=== PATIENT | female | born 1940 | race Caucasian/White ===

== ENCOUNTER 2022-09-08 18:17 | Inpatient (IN) | payer MEDICARE, BC ==
[~2022-09-08] VITALS: Ht 142.2 cm; Wt 44.1 kg
[~2022-09-08 18:17] MED LIST: Folic Acid PO; LEVO500T2 PO; Nut.tx.glucose Intolerance,Soy PO; TAMS-3 PO; TEMA7.5C PO; THIA100T13 PO
[2022-09-08 20:00] VITALS: BP 131/73
[2022-09-08] MEDS ORDERED: REMEDY ESSENTIAL ZINC PASTE 113 GM TOP PRN (20:00)
[2022-09-08] MEDS ORDERED: POLY119P2 PO (20:42)
[2022-09-08] MEDS ORDERED: HYDR-3972 PO (20:42)
[2022-09-08] MEDS ORDERED: CEFT1FRO2 IV (20:42)
[2022-09-08] MEDS ORDERED: MAGN400C PO (20:42)
[2022-09-08] MEDS ORDERED: ENOX40DI SQ (20:42)
[2022-09-08] MEDS ORDERED: LACT10SO3 PO (20:42)
[2022-09-08] MEDS ORDERED: ASCO500T10 PO (20:42)
[2022-09-08] MEDS ORDERED: FAMO-132 PO (20:42)
[2022-09-08] MEDS ORDERED: DOCU-141 PO (20:42)
[2022-09-08] MEDS ORDERED: MULT-594 PO (20:42)
[2022-09-08] MEDS ORDERED: ACET-2154 PO (20:42)
[2022-09-09] MEDS: TRAZODONE 100 MG TABLET PO PRN (02:05)
[2022-09-09] MEDS: OXYCODONE/APAP 5-325 MG TABLET PO PRN (02:05)
[2022-09-09 04:00] VITALS: BP 127/68
[2022-09-09 07:53] VITALS: BP 121/77
[2022-09-09] MEDS ORDERED: LACTULOSE 20 G/30 ML LIQUID UDC PO PRN (12:15)
[2022-09-09] MEDS ORDERED: TEMAZEPAM 7.5 MG CAPSULE PO PRN (12:15)
[2022-09-09] MEDS: levoFLOXacin 500 MG TABLET PO SCH (13:09)
[2022-09-09] MEDS: HYDROCODONE/APAP 5-325MG TABLET PO PRN (15:54)
[2022-09-09 16:14] VITALS: BP 110/64
[2022-09-09] MEDS: DOCUSATE SODIUM 100 MG CAPSULE PO SCH (17:11)
[2022-09-09] MEDS: MAGNESIUM OXIDE 400 MG TABLET PO SCH (17:11)
[2022-09-09] MEDS: GLUCERNA SHAKE 237 ML CAN PO SCH (17:12)
[2022-09-09 20:15] VITALS: BP 91/56
[2022-09-10 04:00] VITALS: BP 100/56
[2022-09-10] MEDS: GLUCERNA SHAKE 237 ML CAN PO SCH ×2 (07:49→17:24)
[2022-09-10] MEDS: MULTIVIT, IRON, MIN NO. 8, FA TABLET PO SCH (08:38)
[2022-09-10] MEDS: THIAMINE HCL 100 MG TABLET PO SCH (08:38)
[2022-09-10] MEDS: FAMOTIDINE 20 MG TABLET PO SCH (08:39)
[2022-09-10] MEDS: DOCUSATE SODIUM 100 MG CAPSULE PO SCH ×3 (08:39→17:23)
[2022-09-10] MEDS: MAGNESIUM OXIDE 400 MG TABLET PO SCH ×2 (08:39→17:23)
[2022-09-10] MEDS: OXYCODONE/APAP 5-325 MG TABLET PO PRN ×2 (08:40→13:49)
[2022-09-10 08:43] VITALS: BP 124/71
[2022-09-10] MEDS: ENOXAPARIN SODIUM 40 MG/0.4 ML DISP.SYRIN SQ SCH (08:49)
[2022-09-10] MEDS ORDERED: POLYETHYLENE GLYCOL 3350 238 GM POWDER PO SCH (09:00)
[2022-09-10] MEDS: MIRALAX 17 GM POWD.PACK PO SCH (09:37)
[2022-09-10] MEDS: levoFLOXacin 500 MG TABLET PO SCH (12:59)
[2022-09-10 15:45] VITALS: BP 104/57
[2022-09-10 19:39] VITALS: BP 103/68
[2022-09-10] MEDS: HYDROCODONE/APAP 5-325MG TABLET PO PRN (22:12)
[2022-09-11 04:00] VITALS: BP 127/76
[2022-09-11] MEDS: GLUCERNA SHAKE 237 ML CAN PO SCH ×2 (07:32→16:20)
[2022-09-11 07:52] VITALS: BP 135/75
[2022-09-11] MEDS: DOCUSATE SODIUM 100 MG CAPSULE PO SCH ×2 (08:52→16:20)
[2022-09-11] MEDS: MIRALAX 17 GM POWD.PACK PO SCH (08:52)
[2022-09-11] MEDS: FAMOTIDINE 20 MG TABLET PO SCH (08:57)
[2022-09-11] MEDS: MULTIVIT, IRON, MIN NO. 8, FA TABLET PO SCH (08:57)
[2022-09-11] MEDS: MAGNESIUM OXIDE 400 MG TABLET PO SCH ×2 (08:57→16:28)
[2022-09-11] MEDS: THIAMINE HCL 100 MG TABLET PO SCH (08:57)
[2022-09-11] MEDS: ENOXAPARIN SODIUM 40 MG/0.4 ML DISP.SYRIN SQ SCH (08:59)
[2022-09-11] MEDS: OXYCODONE/APAP 5-325 MG TABLET PO PRN (10:00)
[2022-09-11] MEDS ORDERED: NALOXONE HCL 0.4 MG/ML AMPUL IV PRN (13:00)
[2022-09-11] MEDS: levoFLOXacin 500 MG TABLET PO SCH (13:57)
[2022-09-11 15:07] VITALS: BP 108/69
[2022-09-11 20:32] VITALS: BP 112/71
[2022-09-11] MEDS: OXYCODONE HCL 10 MG TAB.SR.12H PO SCH (22:38)
[2022-09-12 04:38] VITALS: BP 123/78
[2022-09-12 07:48] VITALS: BP 140/78
[2022-09-12 07:59] LABS: CREATININE 0.9 mg/dL (0.6-1.3); POTASSIUM 3.6 mmol/L (3.5-5.1)
[2022-09-12] MEDS: MAGNESIUM OXIDE 400 MG TABLET PO SCH ×2 (08:29→16:07)
[2022-09-12] MEDS: FAMOTIDINE 20 MG TABLET PO SCH (08:29)
[2022-09-12] MEDS: THIAMINE HCL 100 MG TABLET PO SCH (08:29)
[2022-09-12] MEDS: MULTIVIT, IRON, MIN NO. 8, FA TABLET PO SCH (08:29)
[2022-09-12] MEDS: DOCUSATE SODIUM 100 MG CAPSULE PO SCH ×2 (08:29→16:07)
[2022-09-12] MEDS: OXYCODONE HCL 10 MG TAB.SR.12H PO SCH ×2 (08:29→20:59)
[2022-09-12] MEDS: ENOXAPARIN SODIUM 40 MG/0.4 ML DISP.SYRIN SQ SCH (08:30)
[2022-09-12] MEDS: GLUCERNA SHAKE 237 ML CAN PO SCH ×2 (08:31→17:21)
[2022-09-12] MEDS: MIRALAX 17 GM POWD.PACK PO SCH (08:31)
[2022-09-12 15:28] VITALS: BP 109/62
[2022-09-13 04:00] VITALS: BP 127/79
[2022-09-13 08:00] VITALS: BP 115/66
[2022-09-13] MEDS: ENOXAPARIN SODIUM 40 MG/0.4 ML DISP.SYRIN SQ SCH (08:37)
[2022-09-13] MEDS: MULTIVIT, IRON, MIN NO. 8, FA TABLET PO SCH (08:38)
[2022-09-13] MEDS: MAGNESIUM OXIDE 400 MG TABLET PO SCH ×2 (08:38→16:30)
[2022-09-13] MEDS: DOCUSATE SODIUM 100 MG CAPSULE PO SCH ×2 (08:38→16:30)
[2022-09-13] MEDS: FAMOTIDINE 20 MG TABLET PO SCH (08:38)
[2022-09-13] MEDS: THIAMINE HCL 100 MG TABLET PO SCH (08:38)
[2022-09-13] MEDS: OXYCODONE HCL 10 MG TAB.SR.12H PO SCH ×2 (08:39→21:08)
[2022-09-13] MEDS: MIRALAX 17 GM POWD.PACK PO SCH (08:39)
[2022-09-13] MEDS: GLUCERNA SHAKE 237 ML CAN PO SCH ×2 (08:45→17:08)
[2022-09-13 16:00] VITALS: BP 95/58
[2022-09-13 20:00] VITALS: BP 119/70
[2022-09-14 04:30] VITALS: BP 106/67
[2022-09-14 07:20] LABS: THYROID STIMULATING HORMONE 0.683 mIU/mL (0.358-3.740)
[2022-09-14 08:00] VITALS: BP 104/60
[2022-09-14 08:12] LABS: HEMATOCRIT 29.3 % (31.2-41.9); MEAN CORPUSCULAR HEMOGLOBIN 28.3 uug (24.7-32.8); MEAN CORPUSCULAR VOLUME 86.1 fL (75.5-95.3); PLATELET COUNT (AUTO) 365 K/uL (179-408)
[2022-09-14 08:29] LABS: BILIRUBIN,TOTAL 0.4 mg/dL (0.2-1.0); CREATININE 0.9 mg/dL (0.6-1.3); MAGNESIUM 2.1 mg/dL (1.8-2.4); PHOSPHOROUS 3.6 mg/dL (2.5-4.9); POTASSIUM 3.5 mmol/L (3.5-5.1); TOTAL PROTEIN, SERUM 6.2 g/dL (6.4-8.2)
[2022-09-14] MEDS: OXYCODONE HCL 10 MG TAB.SR.12H PO SCH ×2 (08:32→20:25)
[2022-09-14] MEDS: MIRALAX 17 GM POWD.PACK PO SCH (08:32)
[2022-09-14] MEDS: MULTIVIT, IRON, MIN NO. 8, FA TABLET PO SCH (08:32)
[2022-09-14] MEDS: MAGNESIUM OXIDE 400 MG TABLET PO SCH ×2 (08:32→16:13)
[2022-09-14] MEDS: DOCUSATE SODIUM 100 MG CAPSULE PO SCH ×2 (08:33→16:13)
[2022-09-14] MEDS: THIAMINE HCL 100 MG TABLET PO SCH (08:33)
[2022-09-14] MEDS: FAMOTIDINE 20 MG TABLET PO SCH (08:33)
[2022-09-14] MEDS: GLUCERNA SHAKE 237 ML CAN PO SCH ×2 (08:33→17:07)
[2022-09-14] MEDS: ENOXAPARIN SODIUM 40 MG/0.4 ML DISP.SYRIN SQ SCH (08:34)
[2022-09-14 15:59] VITALS: BP 104/61
[2022-09-14 20:24] VITALS: BP 102/62
[2022-09-14] MEDS: FERROUS GLUCONATE 324 MG TABLET PO SCH (21:00)
[2022-09-15 04:35] VITALS: BP 100/57
[2022-09-15 07:50] VITALS: BP 104/62
[2022-09-15] MEDS: ENOXAPARIN SODIUM 40 MG/0.4 ML DISP.SYRIN SQ SCH (08:01)
[2022-09-15] MEDS: DOCUSATE SODIUM 100 MG CAPSULE PO SCH ×2 (08:03→16:48)
[2022-09-15] MEDS: MULTIVIT, IRON, MIN NO. 8, FA TABLET PO SCH (08:03)
[2022-09-15] MEDS: THIAMINE HCL 100 MG TABLET PO SCH (08:03)
[2022-09-15] MEDS: FAMOTIDINE 20 MG TABLET PO SCH (08:03)
[2022-09-15] MEDS: FERROUS GLUCONATE 324 MG TABLET PO SCH ×3 (08:04→20:25)
[2022-09-15] MEDS: MAGNESIUM OXIDE 400 MG TABLET PO SCH ×2 (08:04→16:48)
[2022-09-15] MEDS: MIRALAX 17 GM POWD.PACK PO SCH (08:04)
[2022-09-15] MEDS: OXYCODONE HCL 10 MG TAB.SR.12H PO SCH ×2 (08:04→20:25)
[2022-09-15] MEDS: GLUCERNA SHAKE 237 ML CAN PO SCH ×2 (08:05→16:49)
[2022-09-15] MEDS: PROTEIN SUPPLEMENT (PROSTAT) 30 ML LIQUID PO SCH (08:07)
[2022-09-15 16:09] VITALS: BP 98/57
[2022-09-15 20:13] VITALS: BP 99/60
[2022-09-15] MEDS: CALCIUM CARB/VITAMIN D 500MG-200UNITS TABLET PO SCH (20:25)
[2022-09-15] MEDS ORDERED: CIPROFLOXACIN HCL 250 MG TABLET PO SCH ×2 (21:15→21:37)
[2022-09-15] MEDS ORDERED: CIPROFLOXACIN HCL 250 MG TABLET ONE (22:35)
[2022-09-16 04:24] VITALS: BP 105/61
[2022-09-16 08:00] VITALS: BP 95/69
[2022-09-16] MEDS: PROTEIN SUPPLEMENT (PROSTAT) 30 ML LIQUID PO SCH (08:00)
[2022-09-16] MEDS: MAGNESIUM OXIDE 400 MG TABLET PO SCH ×2 (08:23→16:39)
[2022-09-16] MEDS: DOCUSATE SODIUM 100 MG CAPSULE PO SCH ×2 (08:23→16:39)
[2022-09-16] MEDS: MULTIVIT, IRON, MIN NO. 8, FA TABLET PO SCH (08:23)
[2022-09-16] MEDS: FAMOTIDINE 20 MG TABLET PO SCH (08:23)
[2022-09-16] MEDS: ENOXAPARIN SODIUM 40 MG/0.4 ML DISP.SYRIN SQ SCH (08:24)
[2022-09-16] MEDS: OXYCODONE HCL 10 MG TAB.SR.12H PO SCH ×2 (08:24→20:46)
[2022-09-16] MEDS: MIRALAX 17 GM POWD.PACK PO SCH (08:25)
[2022-09-16] MEDS: GLUCERNA SHAKE 237 ML CAN PO SCH ×2 (08:32→16:39)
[2022-09-16] MEDS: THIAMINE HCL 100 MG TABLET PO SCH (10:18)
[2022-09-16] MEDS: CALCIUM CARB/VITAMIN D 500MG-200UNITS TABLET PO SCH ×2 (10:18→20:45)
[2022-09-16] MEDS: FERROUS GLUCONATE 324 MG TABLET PO SCH ×2 (10:19→20:46)
[2022-09-16] MEDS: HYDROCODONE/APAP 10-325 MG TABLET PO PRN (11:05)
[2022-09-16] MEDS: CIPROFLOXACIN HCL 250 MG TABLET PO SCH (15:00)
[2022-09-16 16:00] VITALS: BP 83/46
[2022-09-16 20:00] VITALS: BP 97/57
[2022-09-17 04:00] VITALS: BP 113/62
[2022-09-17 07:31] VITALS: BP 114/52
[2022-09-17] MEDS: FAMOTIDINE 20 MG TABLET PO SCH (08:47)
[2022-09-17] MEDS: CALCIUM CARB/VITAMIN D 500MG-200UNITS TABLET PO SCH ×2 (08:47→20:24)
[2022-09-17] MEDS: THIAMINE HCL 100 MG TABLET PO SCH (08:47)
[2022-09-17] MEDS: DOCUSATE SODIUM 100 MG CAPSULE PO SCH ×2 (08:47→16:18)
[2022-09-17] MEDS: FERROUS GLUCONATE 324 MG TABLET PO SCH ×2 (08:47→20:24)
[2022-09-17] MEDS: MAGNESIUM OXIDE 400 MG TABLET PO SCH ×2 (08:47→16:18)
[2022-09-17] MEDS: MULTIVIT, IRON, MIN NO. 8, FA TABLET PO SCH (08:47)
[2022-09-17] MEDS: MIRALAX 17 GM POWD.PACK PO SCH (08:47)
[2022-09-17] MEDS: CIPROFLOXACIN HCL 250 MG TABLET PO SCH (08:47)
[2022-09-17] MEDS: PROTEIN SUPPLEMENT (PROSTAT) 30 ML LIQUID PO SCH (08:48)
[2022-09-17] MEDS: GLUCERNA SHAKE 237 ML CAN PO SCH ×2 (08:48→16:18)
[2022-09-17] MEDS: OXYCODONE HCL 10 MG TAB.SR.12H PO SCH ×2 (08:49→20:20)
[2022-09-17] MEDS: ENOXAPARIN SODIUM 40 MG/0.4 ML DISP.SYRIN SQ SCH (08:51)
[2022-09-17] MEDS: HYDROCODONE/APAP 10-325 MG TABLET PO PRN (13:41)
[2022-09-17] MEDS ORDERED: IV NORMAL SALINE 500 ML IV ONE (17:30)
[2022-09-17] MEDS: TRAZODONE 100 MG TABLET PO PRN (20:24)
[2022-09-17 20:45] VITALS: BP 98/55
[2022-09-18] MEDS: CIPROFLOXACIN HCL 250 MG TABLET PO SCH ×2 (03:21→21:12)
[2022-09-18 04:19] VITALS: BP 111/65
[2022-09-18 07:14] LABS: CARBON DIOXIDE 32 mmol/L (21-32); CHLORIDE 102 mmol/L (98-107); CREATININE 0.9 mg/dL (0.6-1.3); GLUCOSE 102 mg/dL (74-106); POTASSIUM 3.9 mmol/L (3.5-5.1); UREA NITROGEN, BLOOD 28 mg/dL (7-18)
[2022-09-18 07:27] VITALS: BP 107/56
[2022-09-18] MEDS: DOCUSATE SODIUM 100 MG CAPSULE PO SCH ×2 (08:15→16:50)
[2022-09-18] MEDS: CALCIUM CARB/VITAMIN D 500MG-200UNITS TABLET PO SCH ×2 (08:15→21:13)
[2022-09-18] MEDS: FAMOTIDINE 20 MG TABLET PO SCH (08:15)
[2022-09-18] MEDS: MULTIVIT, IRON, MIN NO. 8, FA TABLET PO SCH (08:15)
[2022-09-18] MEDS: FERROUS GLUCONATE 324 MG TABLET PO SCH ×2 (08:15→21:13)
[2022-09-18] MEDS: MAGNESIUM OXIDE 400 MG TABLET PO SCH ×2 (08:15→16:50)
[2022-09-18] MEDS: THIAMINE HCL 100 MG TABLET PO SCH (08:16)
[2022-09-18] MEDS: OXYCODONE HCL 10 MG TAB.SR.12H PO SCH ×2 (08:16→21:14)
[2022-09-18] MEDS: GLUCERNA SHAKE 237 ML CAN PO SCH ×2 (08:16→16:50)
[2022-09-18] MEDS: PROTEIN SUPPLEMENT (PROSTAT) 30 ML LIQUID PO SCH (08:16)
[2022-09-18] MEDS: MIRALAX 17 GM POWD.PACK PO SCH (08:16)
[2022-09-18] MEDS: ENOXAPARIN SODIUM 40 MG/0.4 ML DISP.SYRIN SQ SCH (08:17)
[2022-09-18 16:00] VITALS: BP 112/62
[2022-09-18 20:28] VITALS: BP 111/63
[2022-09-19 04:56] VITALS: BP 120/67
[2022-09-19 08:02] VITALS: BP 103/63
[2022-09-19] MEDS: MAGNESIUM OXIDE 400 MG TABLET PO SCH ×2 (08:15→16:52)
[2022-09-19] MEDS: MULTIVIT, IRON, MIN NO. 8, FA TABLET PO SCH (08:16)
[2022-09-19] MEDS: FAMOTIDINE 20 MG TABLET PO SCH (08:16)
[2022-09-19] MEDS: THIAMINE HCL 100 MG TABLET PO SCH (08:16)
[2022-09-19] MEDS: DOCUSATE SODIUM 100 MG CAPSULE PO SCH ×2 (08:16→16:53)
[2022-09-19] MEDS: OXYCODONE HCL 10 MG TAB.SR.12H PO SCH ×2 (08:16→20:28)
[2022-09-19] MEDS: MIRALAX 17 GM POWD.PACK PO SCH (08:17)
[2022-09-19] MEDS: GLUCERNA SHAKE 237 ML CAN PO SCH ×2 (08:18→17:03)
[2022-09-19] MEDS: FERROUS GLUCONATE 324 MG TABLET PO SCH ×2 (08:18→20:25)
[2022-09-19] MEDS: PROTEIN SUPPLEMENT (PROSTAT) 30 ML LIQUID PO SCH (08:19)
[2022-09-19] MEDS: ENOXAPARIN SODIUM 40 MG/0.4 ML DISP.SYRIN SQ SCH (08:20)
[2022-09-19] MEDS: CALCIUM CARB/VITAMIN D 500MG-200UNITS TABLET PO SCH ×2 (08:23→20:25)
[2022-09-19 15:58] VITALS: BP 99/55
[2022-09-19] MEDS: CIPROFLOXACIN HCL 250 MG TABLET PO SCH (16:52)
[2022-09-19 20:10] VITALS: BP 93/55
[2022-09-20 04:32] VITALS: BP 102/54
[2022-09-20 07:42] VITALS: BP 111/60
[2022-09-20] MEDS: CALCIUM CARB/VITAMIN D 500MG-200UNITS TABLET PO SCH ×2 (10:58→20:33)
[2022-09-20] MEDS: FERROUS GLUCONATE 324 MG TABLET PO SCH ×2 (10:58→20:36)
[2022-09-20] MEDS: MULTIVIT, IRON, MIN NO. 8, FA TABLET PO SCH (10:59)
[2022-09-20] MEDS: MAGNESIUM OXIDE 400 MG TABLET PO SCH ×2 (10:59→17:24)
[2022-09-20] MEDS: DOCUSATE SODIUM 100 MG CAPSULE PO SCH ×2 (10:59→17:24)
[2022-09-20] MEDS: THIAMINE HCL 100 MG TABLET PO SCH (10:59)
[2022-09-20] MEDS: OXYCODONE HCL 10 MG TAB.SR.12H PO SCH ×2 (10:59→20:33)
[2022-09-20] MEDS: FAMOTIDINE 20 MG TABLET PO SCH (10:59)
[2022-09-20] MEDS: ENOXAPARIN SODIUM 40 MG/0.4 ML DISP.SYRIN SQ SCH (11:00)
[2022-09-20] MEDS: PROTEIN SUPPLEMENT (PROSTAT) 30 ML LIQUID PO SCH (11:00)
[2022-09-20] MEDS: GLUCERNA SHAKE 237 ML CAN PO SCH ×2 (11:00→17:00)
[2022-09-20] MEDS: MIRALAX 17 GM POWD.PACK PO SCH (11:01)
[2022-09-20 15:10] VITALS: BP 107/60
[2022-09-20 20:00] VITALS: BP 127/83
[2022-09-21 04:00] VITALS: BP 107/64
[2022-09-21 07:44] VITALS: BP 122/73
[2022-09-21] MEDS: THIAMINE HCL 100 MG TABLET PO SCH (08:30)
[2022-09-21] MEDS: PROTEIN SUPPLEMENT (PROSTAT) 30 ML LIQUID PO SCH (08:30)
[2022-09-21] MEDS: GLUCERNA SHAKE 237 ML CAN PO SCH ×2 (08:30→17:07)
[2022-09-21] MEDS: OXYCODONE HCL 10 MG TAB.SR.12H PO SCH ×2 (08:31→20:23)
[2022-09-21] MEDS: FAMOTIDINE 20 MG TABLET PO SCH (08:31)
[2022-09-21] MEDS: CALCIUM CARB/VITAMIN D 500MG-200UNITS TABLET PO SCH ×2 (08:31→20:24)
[2022-09-21] MEDS: DOCUSATE SODIUM 100 MG CAPSULE PO SCH ×2 (08:31→17:06)
[2022-09-21] MEDS: ENOXAPARIN SODIUM 40 MG/0.4 ML DISP.SYRIN SQ SCH (08:32)
[2022-09-21] MEDS: MAGNESIUM OXIDE 400 MG TABLET PO SCH ×2 (08:35→17:06)
[2022-09-21] MEDS: FERROUS GLUCONATE 324 MG TABLET PO SCH ×2 (08:35→20:24)
[2022-09-21] MEDS: MIRALAX 17 GM POWD.PACK PO SCH (08:35)
[2022-09-21] MEDS: MULTIVIT, IRON, MIN NO. 8, FA TABLET PO SCH (08:36)
[2022-09-21 13:13] LABS: *OCCULT BLOOD STOOL NEGATIVE (NEGATIVE)
[2022-09-21 16:39] VITALS: BP 110/69
[2022-09-21 16:54] VITALS: BP 100/60
[2022-09-21 20:10] VITALS: BP 121/70
[2022-09-22 04:00] VITALS: BP 118/70
[2022-09-22 07:51] VITALS: BP 121/75
[2022-09-22] MEDS: GLUCERNA SHAKE 237 ML CAN PO SCH ×2 (08:04→17:07)
[2022-09-22] MEDS: PROTEIN SUPPLEMENT (PROSTAT) 30 ML LIQUID PO SCH (08:05)
[2022-09-22] MEDS: MAGNESIUM OXIDE 400 MG TABLET PO SCH ×2 (08:17→16:25)
[2022-09-22] MEDS: FAMOTIDINE 20 MG TABLET PO SCH (08:17)
[2022-09-22] MEDS: THIAMINE HCL 100 MG TABLET PO SCH (08:17)
[2022-09-22] MEDS: MULTIVIT, IRON, MIN NO. 8, FA TABLET PO SCH (08:17)
[2022-09-22] MEDS: DOCUSATE SODIUM 100 MG CAPSULE PO SCH ×2 (08:17→16:25)
[2022-09-22] MEDS: CALCIUM CARB/VITAMIN D 500MG-200UNITS TABLET PO SCH ×2 (08:17→20:28)
[2022-09-22] MEDS: OXYCODONE HCL 10 MG TAB.SR.12H PO SCH ×2 (08:18→20:28)
[2022-09-22] MEDS: MIRALAX 17 GM POWD.PACK PO SCH (08:18)
[2022-09-22] MEDS: ENOXAPARIN SODIUM 40 MG/0.4 ML DISP.SYRIN SQ SCH (08:18)
[2022-09-22] MEDS: FERROUS GLUCONATE 324 MG TABLET PO SCH ×2 (08:19→20:28)
[2022-09-22 15:54] VITALS: BP 91/52
[2022-09-22 20:11] VITALS: BP 117/69
[2022-09-23 04:11] VITALS: BP 122/69
[2022-09-23] MEDS: GLUCERNA SHAKE 237 ML CAN PO SCH ×4 (08:51→17:16)
[2022-09-23] MEDS: MAGNESIUM OXIDE 400 MG TABLET PO SCH ×2 (08:52→17:33)
[2022-09-23] MEDS: PROTEIN SUPPLEMENT (PROSTAT) 30 ML LIQUID PO SCH (08:52)
[2022-09-23] MEDS: DOCUSATE SODIUM 100 MG CAPSULE PO SCH ×2 (08:52→17:33)
[2022-09-23] MEDS: MULTIVIT, IRON, MIN NO. 8, FA TABLET PO SCH (08:52)
[2022-09-23] MEDS: OXYCODONE HCL 10 MG TAB.SR.12H PO SCH ×2 (08:53→20:41)
[2022-09-23] MEDS: THIAMINE HCL 100 MG TABLET PO SCH (08:53)
[2022-09-23] MEDS: MIRALAX 17 GM POWD.PACK PO SCH (08:53)
[2022-09-23] MEDS: FAMOTIDINE 20 MG TABLET PO SCH (08:53)
[2022-09-23] MEDS: FERROUS GLUCONATE 324 MG TABLET PO SCH ×2 (08:54→20:41)
[2022-09-23] MEDS: ENOXAPARIN SODIUM 40 MG/0.4 ML DISP.SYRIN SQ SCH (08:55)
[2022-09-23] MEDS: CALCIUM CARB/VITAMIN D 500MG-200UNITS TABLET PO SCH ×2 (09:01→20:41)
[2022-09-23 20:39] VITALS: BP 101/65
[2022-09-24 04:16] VITALS: BP 120/72
[2022-09-24 08:00] VITALS: BP 109/66
[2022-09-24] MEDS: MULTIVIT, IRON, MIN NO. 8, FA TABLET PO SCH (08:15)
[2022-09-24] MEDS: FAMOTIDINE 20 MG TABLET PO SCH (08:16)
[2022-09-24] MEDS: THIAMINE HCL 100 MG TABLET PO SCH (08:16)
[2022-09-24] MEDS: OXYCODONE HCL 10 MG TAB.SR.12H PO SCH (08:16)
[2022-09-24] MEDS: MAGNESIUM OXIDE 400 MG TABLET PO SCH (08:16)
[2022-09-24] MEDS: DOCUSATE SODIUM 100 MG CAPSULE PO SCH (08:16)
[2022-09-24] MEDS: ENOXAPARIN SODIUM 40 MG/0.4 ML DISP.SYRIN SQ SCH (08:18)
[2022-09-24] MEDS: FERROUS GLUCONATE 324 MG TABLET PO SCH (08:18)
[2022-09-24] MEDS: MIRALAX 17 GM POWD.PACK PO SCH (08:18)
[2022-09-24] MEDS: CALCIUM CARB/VITAMIN D 500MG-200UNITS TABLET PO SCH (08:19)
[2022-09-24] MEDS: GLUCERNA SHAKE 237 ML CAN PO SCH ×3 (08:19→12:34)
[2022-09-24] MEDS: PROTEIN SUPPLEMENT (PROSTAT) 30 ML LIQUID PO SCH (08:20)
== END 2022-09-24 14:51 | DRG 559 ==
LOC: MEDSURG3 20:04
PROVIDERS: ADMIT Physical Medicine & Rehabilitation Pain Medicine; ATTEND Physical Medicine & Rehabilitation Pain Medicine
DX: S72.012D Unspecified intracapsular fracture of left femur, subsequent encounter for closed fracture with routine healing (principal); E43 Unspecified severe protein-calorie malnutrition; D68.59 Other primary thrombophilia; N39.0 Urinary tract infection, site not specified; S62.512D Displaced fracture of proximal phalanx of left thumb, subsequent encounter for fracture with routine healing; F42.9 Obsessive-compulsive disorder, unspecified; G89.4 Chronic pain syndrome; B96.89 Other specified bacterial agents as the cause of diseases classified elsewhere; N81.4 Uterovaginal prolapse, unspecified; R32 Unspecified urinary incontinence; R15.9 Full incontinence of feces; D50.9 Iron deficiency anemia, unspecified; E55.9 Vitamin D deficiency, unspecified; W19.XXXD Unspecified fall, subsequent encounter; Z96.642 Presence of left artificial hip joint; Z88.0 Allergy status to penicillin
CPT/HCPCS: 36415; 73100; 73110; 73130; 73501; 82652; 83550; 83735; 84100; 84443; 85025; 97535-GO-CO; A4663; A6209; C1758; J1650; J7040